=== PATIENT | female | born 2000 | race African-American/Black ===

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

== ENCOUNTER 2020-09-05 14:28 | Emergency (ER) | payer OTHER, SELFPAY ==
[2020-09-05] MEDS ORDERED: Sodium Chloride 0.9% 1,000 ML ONE (15:02)
[2020-09-05] MEDS ORDERED: Ondansetron PF 4 MG/2 ML Vial ONE (15:03)
[2020-09-05 15:20] LABS: Bilirubin Negative (Negative); Blood, Urine Negative (Negative); Clarity Clear (Clear); Glucose, Urine (Dipstick) Negative (Negative); Ketone, Urine Trace mg/dL (Negative); Leukocyte Negative (Negative); Nitrite Negative (Negative); Protein, Urine (Dipstick) Negative (Neg-Trace); Specific Gravity, Urine 1.025 (1.005-1.030); Urobilinogen 0.2 mg/dL (Less than 2); pH, Urine 6.5 (5.0-9.0)
[2020-09-05 15:29] LABS: ALT (SGPT) 9 U/L (8-55); AST (SGOT) 10 U/L (5-30); Albumin 3.9 g/dL (3.5-5.0); Alkaline Phosphatase 51 U/L (40-100); Anion Gap 11 mmol/L (10-20); BUN (Urea Nitrogen) 12 mg/dL (8.4-21.0); Bilirubin, Total 1.1 mg/dL (0.2-1.2); Calc. Creatinine Clearance 0 mL/min (70-130); Calcium 8.8 mg/dL (7.8-10.44); Carbon Dioxide 25 mmol/L (22-29); Chloride 104 mmol/L (98-107); Globulin 3.4 g/dL (2.4-3.5); Glucose 94 mg/dL (70-105); Potassium 3.3 mmol/L (3.5-5.1); Protein, Total 7.3 g/dL (6.0-8.3); Sodium 137 mmol/L (136-145)
[2020-09-05 15:30] LABS: BHCG - Serum Negative (NEGATIVE); Pregs Control Bar Appear? YES (CONTROL BAR)
[2020-09-05 15:31] LABS: #Eosinphils 0.1 thou/uL (0.0-0.7); #Lymphocytes 1.6 thou/uL (1.20-3.40); #Monocytes 0.5 thou/uL (0.11-0.59); %Basophils 0.5 % (0.0-1.0); %Eosinophils 0.7 % (0.0-10.0); %Lymphocytes 19.2 % (28.0-48.0); %Monocytes 6.2 % (0.0-4.0); %Neutrophils 73.5 % (31.0-61.0); Hemoglobin 12.7 g/dL (12.0-16.0); Mean Corpuscular HGB CONC 29.7 g/dL (32.0-36.0); Mean Corpuscular Hemoglobin 28.2 pg (25.0-35.0); Mean Platelet Volume 7.1 fL (7.4-10.4); Platelet Count 212 thou/uL (130-400); RBC Distribution Width 12.7 % (11.5-14.5); White Blood Cell (WBC) Count 8.1 thou/uL (4.8-10.8)
[2020-09-05] MEDS ORDERED: Potassium Chloride 20 MEQ TAB ONE (15:56)
== END 2020-09-05 16:02 | disposition home or self-care (01) ==
LOC: NAV ERS 14:28
DX: E86.0 Dehydration (principal); R11.2 Nausea with vomiting, unspecified; F17.210 Nicotine dependence, cigarettes, uncomplicated
CPT/HCPCS: 80053; 81003; 84703; 85025; 96374; J2405; J7050